=== PATIENT | female | born 1970 | race Caucasian/White ===

== ENCOUNTER 2016-06-16 11:09 | Emergency (ER) | payer OTHER ==
[~2016-06-16] VITALS: Ht 162.6 cm; Wt 76.7 kg
[~2016-06-16 11:09] MED LIST: BENADRYL50 MG PO; CITALOPRAM HBR20 MG; CLONAZEPAM1 MG; DESYREL100 MG; FLEXERIL10 MG PO; MOTRIN600 MG PO; PREDNISONE20 MG PO; TRAMADOL HCL50 MG PO
[2016-06-16] MEDS ORDERED: BACLOFEN10 MG PO (13:16)
[2016-06-16] MEDS ORDERED: ZOFRAN4 MG PO (13:45)
[2016-06-16] MEDS ORDERED: MOTRIN800 MG PO (13:45)
[2016-06-16] MEDS ORDERED: PREDNISONE20 MG PO (13:45)
[2016-06-16 14:43] VITALS: BP 98/56
== END 2016-06-16 14:44 | disposition home or self-care (01) ==
LOC: EME 11:09
DX: M53.3 Sacrococcygeal disorders, not elsewhere classified (principal); S06.0X9A Concussion with loss of consciousness of unspecified duration, initial encounter; R52 Pain, unspecified; W10.9XXA Fall (on) (from) unspecified stairs and steps, initial encounter; Z87.891 Personal history of nicotine dependence
CPT/HCPCS: 99281; 99284; J1885; J3360; J7512

== ENCOUNTER 2016-09-25 19:35 | Emergency (ER) | payer OTHER ==
[~2016-09-25] VITALS: Ht 162.6 cm; Wt 78.9 kg
[~2016-09-25 19:35] MED LIST changes: +BACLOFEN10 MG PO; +MOTRIN800 MG PO; +ZOFRAN4 MG PO
[2016-09-25] MEDS ORDERED: ULTRACET1 TABLET PO (21:48)
[2016-09-25] MEDS ORDERED: MOTRIN800 MG PO (21:48)
[2016-09-25] MEDS ORDERED: VALIUM5 MG PO (21:48)
[2016-09-25 23:16] VITALS: BP 108/61
== END 2016-09-25 23:20 | disposition home or self-care (01) ==
LOC: EME 19:35
DX: S16.1XXA Strain of muscle, fascia and tendon at neck level, initial encounter (principal); S40.022A Contusion of left upper arm, initial encounter; S70.02XA Contusion of left hip, initial encounter; S80.12XA Contusion of left lower leg, initial encounter; S70.01XA Contusion of right hip, initial encounter; V49.40XA Driver injured in collision with unspecified motor vehicles in traffic accident, initial encounter; Y92.410 Unspecified street and highway as the place of occurrence of the external cause; M79.7 Fibromyalgia; F17.200 Nicotine dependence, unspecified, uncomplicated; Z88.6 Allergy status to analgesic agent
CPT/HCPCS: 72040; 72170; 73060; 73090; 73590; 99281; 99285